=== PATIENT | female | born 1990 | race African-American/Black ===

== ENCOUNTER 2018-02-27 13:14 | Emergency (ER) | payer SELFPAY ==
[2018-02-27 13:21] VITALS: BP 131/74
--- NOTE | 2018-02-27 13:38 | ER Document Report ---
HPI - HPI Patient complains to provider of: Red bumps Time Seen by Provider: 02/27/18 13:24 Onset: Last week Onset/Duration: Persistent Quality of pain: Other - Sore Severity: Moderate Pain Level: 3 Context: She presents emergency department with complaints of red painful bumps to her left hand leg and elbow. She reports for 1 week. Denies other symptoms such as fever nausea vomiting diarrhea. Denies new soap or laundry detergent or lotion. Does not have pets. Has not traveled recently. Patient is worried she has been MRSA. Patient works in a doctor's office. Denies history of MRSA but reports her spouse had MRSA 10 years ago Associated Symptoms: None Exacerbated by: Denies Relieved by: Denies Similar symptoms previously: No Recently seen / treated by doctor: No - REPRODUCTIVE Reproductive: DENIES: : Past Medical History - General Information source: Patient Last Menstrual Period: February 18, 2018 - Social History Smoking Status: Unknown if Ever Smoked Cigarette use (# per day): No Frequency of alcohol use: None Drug Abuse: None Occupation: Works in a doctor's office Lives with: Family Family History: Reviewed & Not Pertinent, Other - Spouse with MRSA Patient has suicidal ideation: No Patient has homicidal ideation: No - Medical History Medical History: Negative Renal/ Medical History: Denies: Hx Peritoneal Dialysis Surgical Hx: Negative - Immunizations Hx Diphtheria, Pertussis, Tetanus Vaccination: Yes - 2009 History of Influenza Vaccine for 01/2017 - 06/2017 Season: No Vertical Provider Document - CONSTITUTIONAL Agree With Documented VS: Yes Exam Limitations: No Limitations General Appearance: WD/WN, No Apparent Distress - Nontoxic looking - INFECTION CONTROL TRAVEL OUTSIDE OF THE [place] IN LAST 30 DAYS: No - HEENT HEENT: Atraumatic, Normocephalic - NECK Neck: Supple - RESPIRATORY Respiratory: No Respiratory Distress - CARDIOVASCULAR Cardiovascular: Regular Rate - MUSCULOSKELETAL/EXTREMETIES Musculoskeletal/Extremeties: ARACELI MARINELLI - NEURO Level of Consciousness: Awake, Alert, Appropriate Motor/Sensory: No Motor Deficit - DERM Integumentary: Warm, Dry, No Rash Adult Front & Back Diagram: 1 - Tiny erythema circular areas to left knuckles no pustule no vesicle no warmth 2 - Patient reports she did have a bump to her right elbow nothing noted at this time 3 - Small red bump on left ankle no pustule Course - Re-evaluation Re-evalutation: 02/27/18 13:48 No open wounds no vesicles no pustules. Patient instructed on signs and symptoms of abscess, infection. Patient was given written material regarding MRSA infection. She was instructed to not scratch the area. She was instructed to monitor the sites for signs of infection and follow-up with her primary care provider. She verbalized understanding. Dictation of this chart was performed using voice recognition software; therefore, there may be some unintended grammatical errors. - Vital Signs Vital signs: Temp Pulse Resp BP Pulse Ox 98.4 F 67 16 131/74 H 97 02/27/18 13:19 02/27/18 13:19 02/27/18 13:19 02/27/18 13:19 02/27/18 13:19 Discharge - Discharge Clinical Impression: Skin irritation Condition: Stable Disposition: HOME, SELF-CARE Additional Instructions: *You have been evaluated for skin irritation *Monitor the site for signs of infection such as pain, redness, swelling, warmth *do not itch the area *Follow up with a primary care provider within one week for recheck *Return to ED for signs of infection, worsening condition, changes, needs Monitor your blood pressure. Your blood pressure was elevated today. This may be because you were anxious, in pain or because you need medication. It is important to follow up with your primary care provider for full evaluation. Forms: Elevated Blood Pressure, Return to Work Referrals: JORDAN TAYLOR MD [Primary Care Provider] - Follow up in 1 week
== END 2018-02-27 13:40 | disposition home or self-care (01) ==
LOC: ER 13:14
DX: L98.9 Disorder of the skin and subcutaneous tissue, unspecified (principal)
CPT/HCPCS: 99282